=== PATIENT | male | born 1980 | race African-American/Black ===

== ENCOUNTER 2020-11-07 07:51 | Inpatient (IN) | payer OTHER ==
[~2020-11-07] VITALS: Ht 175.3 cm; Wt 88.9 kg
--- NOTE | ~2020-11-07 | CON ---
[address] [address] CONSULTATION Name: BRANDEE BEE Room: [address] IN .R.#: [id number] Admission: 11/07/20 Attend Phys: Nando Langston Discharge: Date of : 78 Report #: [id number] THIS REPORT FOR: cc: FAM - No family physician/PCP FAM - No family physician/PCP Eduardo White MD ~ DOC #: [id number] Eduardo White MD DATE OF CONSULTATION: 11/07/2020 HISTORY OF PRESENT ILLNESS: This is a 40-year-old male patient who was evaluated by me for the possibility of Power's palsy. 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 He thinks it was on the left side and now he is having some numbness on the left side, but he also has some symptoms on the right side. Symptoms are just not very well defined. REVIEW OF SYSTEMS: A 14-point review of systems was carried out. It looks like this patient is hypertensive and at least is running high blood pressure here. 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 He also has some symptoms in the left arm. A 14-point review of system otherwise was noncontributory. PAST MEDICAL HISTORY: What he describes as Power's palsy, but I do not have any records to confirm that. SOCIAL HISTORY: He smokes, but he said he smokes very little. PHYSICAL EXAMINATION: GENERAL: The patient's examination indicates that this patient is alert, responsive, able to follow simple and complex commands. He talks very little and he just feels not right. NEUROLOGIC: Cranial nerve examination 2-12 does appear to be showing facial palsy on the right side, but I do not know what is old and what is new. Similarly, he appeared to be weak in generalized fashion. His position sense is intact. He does not have any cerebellar sign. CARDIAC: His cardiac examination is unremarkable. RESPIRATORY: No respiratory difficulty was noticed. VITAL SIGNS: Blood pressure is 156/103, respirations 20, pulse is 67, temperature is 98.3. LABORATORY DATA: His MCV for some reason is high at 106 and platelet count is also high. DIAGNOSTIC DATA: His CT scan was reviewed and it does show a question of stroke, age of that is difficult to determine. [place] [address] CONSULTATION Name: BRANDEE BEE Maritza Room: [address]#: [id number] Admission: 11/07/20 Attend Phys: Nando Langston Discharge: Date of : 78 Report #: [id number] yesterday, which is more than 24 hours ago. IMPRESSION: This patient does appear to have CT evidence of strokes. We need to confirm that with an MRI and if it confirms, he needs extensive workup. I ordered a stat CTA of the head and neck. I discussed his potential complication with the patient and he understands that and I will also go ahead and do an MRI and some workup because he is a young individual. Ultimate cause may sock turner to be hypertension, but other vascular risk factors need to be excluded. The patient wants to follow this plan and we will do that. Thank you very much for this referral. MD URBANO Mccartney/SADIA/ELAN By: [id number] 29Eduardo White MD /nt
[2020-11-07 08:02] VITALS: BP 156/126
[2020-11-07 08:45] LABS: ABSOLUTE BASOPHILS 0.1 thou/uL (0.0-0.2); ABSOLUTE EOSINOPHILS 0.3 thou/uL (0.0-0.7); ABSOLUTE LYMPHOCYTES 2.6 thou/uL (0.8-5.3); ABSOLUTE NEUTROPHILS 7.1 thou/uL (1.6-8.1); BASOPHILS 0.8 %; EOSINOPHILS 2.3 %; HEMATOCRIT 46.4 % (42.0-52.0); HEMOGLOBIN 15.8 gm/dL (14.0-18.0); LYMPHOCYTES 23.7 %; MCH 36.3 pg (26.0-34.0); MCHC 34.1 g/dL (28.0-37.0); MCV 106.4 fL (80.0-100.0); MONOCYTES 8.8 %; MPV 7.3 fl. (7.2-11.1); NUCLEATED RBCS 0 /100WBC; PLATELET COUNT* 455 thou/uL (150-400); POLYS 64.4 %; RBC 4.36 mil/uL (4.50-6.00); RDW-CV 17.3 % (10.5-14.5)
[2020-11-07 08:59] LABS: CALCIUM 8.8 mg/dL (8.5-10.1); CREATININE 0.9 mg/dL (0.6-1.3); POTASSIUM 3.3 mmol/L (3.5-5.1)
--- NOTE | 2020-11-07 09:00 | NUR ---
ASSUMED CARE OF PT. NIH AND SWALLOW STUDY PERFORMED. VSS. 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
[2020-11-07] MEDS ORDERED: PREDNISONE 20 M20 M1 PO (09:02)
[2020-11-07] MEDS ORDERED: ACYCLOVIR 400400 MG PO (09:02)
[2020-11-07 09:03] LABS: ALBUMIN 3.2 g/dL (3.4-5.0); TOTAL BILIRUBIN 0.4 mg/dL (<0.1-1.0); TOTAL PROTEIN 8.4 g/dL (6.4-8.2)
[2020-11-07 11:25] VITALS: BP 162/111
[2020-11-07 11:36] VITALS: BP 171/111
--- NOTE | 2020-11-07 13:04 | NUR ---
PT ADMITTED TO ROOM 225 VIA CART FROM ED AT APPROXIMATELY 1140. PT ORIENTED TO ROOM AND CALL LIGHT. ADMISSION ASSESSMENT AND HISTORY CHARTED. SEPSIS NEGATIVE. PT FAILED BEDSIDE SWALLOW IN ED PER ERROL LERNER. PT NPO. SPEECH THERAPY NOTIFIED AND WILL BE HERE TO ASSESS PT SHORTLY. PT A&0X4, DENIES ANY PAIN OR SHORTNESS OF BREATH AT THIS TIME. PT STATES," I JUST HAVENT FELT RIGHT ALL OVER SINCE YESTERDAY". NIH CHARTED. PT UP WITH SBA TO BATHROOM. 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 ON RA SAT UPPER 90'S. PT DENIES TAKING ANY HOME MEDICATIONS. NEURO CONSULT IN PLACE. MEDS PER AUG. CALL LIGHT WITHIN REACH. WILL CONTINUE PLAN OF CARE.
--- NOTE | 2020-11-07 14:28 | EKG ---
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: KONRAD : 1980 Requested By: Alfredo Tijerina Order Number: [id number] MD: Jean-Pierre Diez Measurements Intervals [place] Rate: 70 P: 68 WI: 167 QRS: 32 QRSD: 96 T: 70 QT: 420 QTc: 454 Interpretive Statements Sinus rhythm Minimal ST elevation, anterior leads normal variant No previous ECG available for comparison Electronically Signed On 11-07-2020 14:28:30 CDT by Jean-Pierre Diez [email or web address] <ELECTRONICALLY SIGNED> By: Jean-Pierre Diez MD, [facility] 11/07/20 1428 0830 Jean-Pierre Diez MD, [facility] /EPI
--- NOTE | 2020-11-07 17:04 | 2DMMODE ---
[place] [address] 2 D/M-MODE ECHOCARDIOGRAM Name: BRANDEE BEE Room: [address] IN [facility]#: [id number] Admission: 11/07/20 Attend Phys: Sohail Reddy Discharge: Date of : 78 Date of Service: 11/07/20 1704 Report #: [id number] THIS REPORT FOR: cc: FAM - No family physician/PCP FAM - No family physician/PCP Curly Jerez MD [facility] ~ APPROVED REPORT Study performed: 11/07/2020 16:15:24 EXAM: Comprehensive 2D, Doppler, and color-flow Echocardiogram Patient Location: Bedside BSA: 2.07 HR: 63 bpm BP: 171/111 mmHg Other Information Study Quality: Adequate Indications CVA/TIA Echo Enhancing Agent Indication: Rule out Shunt Agent(s) / Amount(s) Used: Agitated Saline 6 cc 2D Dimensions IVSd: 15.04 (7-11mm) LVOT Diam: 21.28 (18-24mm) LVDd: 49.31 mm PWd: 11.00 (7-11mm) Ascending Ao: 27.95 (22-36mm) LVDs: 36.26 (25-40mm) Aortic Root: 34.68 mm Volumes Left Atrial Volume (Systole) LA ESV Index: 22.00 mL/m2 Aortic Valve AoV Peak Felton.: 0.90 m/s AO Peak Gr.: 3.25 mmHg LVOT Max P.32 mmHg AO Mean Gr.: 1.98 mmHg LVOT Mean P.10 mmHg LVOT Max V: 0.76 m/s AO V2 VTI: 17.61 cm LVOT Mean V: 0.48 m/[place] [address] 2 D/M-MODE ECHOCARDIOGRAM Name: BRANDEE BEE Room: [address] IN ..#: [id number] Admission: 11/07/20 Attend Phys: Sohail Reddy Discharge: Date of : 78 Date of Service: 11/07/20 1704 Report #: [id number] LONG (VTI): 2.93 cm2 LVOT V1 VTI: 14.52 cm Mitral Valve E/A Ratio: 1.49 MV Decel. Time: 200.98 ms MV E Max Felton.: 0.67 m/s MV PHT: 58.28 ms MVA (PHT): 3.77 cm2 TDI E/Lateral E': 8.38 E/Medial E': 11.17 Medial E' Felton.: 0.06 m/s Lateral E' Felton.: 0.08 m/s Pulmonary Valve PV Peak Felton.: 0.71 m/s PV Peak Gr.: 2.02 mmHg Tricuspid Valve RAP Estimate: 20.00 mmHg TR Peak Gr.: 29.18 mmHg RVSP: 49.18 mmHg PA Pressure: 49.18 mmHg Left Ventricle The left ventricle is normal size. There is normal LV segmental wall motion. Mild concentric left ventricular hypertrophy. Left ventricular systolic function is normal. LVEF is 50-55%. Transmitral Doppler flow pattern suggests impaired LV relaxation. Right Ventricle The right ventricle is normal size. The right ventricular systolic function is normal. Atria The left atrium size is normal. Injection of bubbles documented no interatrial shunt. The right atrium size is normal. Aortic Valve The aortic valve is normal in structure. No aortic regurgitation is present. There is no aortic valvular stenosis. Mitral Valve The mitral valve is normal in structure. There is no mitral valve regurgitation noted. No evidence of mitral valve stenosis. Tricuspid Valve The tricuspid valve [place] [address] 2 D/M-MODE ECHOCARDIOGRAM Name: BRANDEE BEE Room: [address] IN [facility]#: [id number] Admission: 11/07/20 Attend Phys: Sohail Reddy Discharge: Date of : 78 Date of Service: 11/07/20 1704 Report #: [id number] regurgitation. Pulmonic Valve The pulmonary valve is normal in structure. Trace pulmonic regurgitation. Great Vessels The aortic root is normal in size. IVC is normal in size and collapses >50% with inspiration. Pericardium There is no pericardial effusion. <Conclusion> The left ventricle is normal size. Mild concentric left ventricular hypertrophy. Left ventricular systolic function is normal. LVEF is 50-55%. Transmitral Doppler flow pattern suggests impaired LV relaxation. Injection of bubbles documented no interatrial shunt. Trace tricuspid regurgitation. <ELECTRONICALLY SIGNED> By: Curly Jerez MD, FACC 11/07/201703 03 03 Curly Jerez MD, FACC /INF
[2020-11-07 17:16] VITALS: BP 156/103
[2020-11-07 17:18] VITALS: BP 156/103
[2020-11-07 20:00] VITALS: BP 162/95
[2020-11-08 00:53] VITALS: BP 163/95
[2020-11-08 04:18] LABS: HEMATOCRIT 46.2 % (42.0-52.0); HEMOGLOBIN 15.8 gm/dL (14.0-18.0); MCH 36.9 pg (26.0-34.0); MCHC 34.2 g/dL (28.0-37.0); MCV 107.7 fL (80.0-100.0); MPV 7.7 fl. (7.2-11.1); RBC 4.29 mil/uL (4.50-6.00); RDW-CV 17.6 % (10.5-14.5); WBC 11.1 thou/uL (4.0-11.0)
[2020-11-08 04:36] VITALS: BP 168/104
[2020-11-08 04:44] LABS: ANION GAP 7 mmol/L (7-16); BUN 8 mg/dL (7-18); CALCIUM 8.7 mg/dL (8.5-10.1); CHLORIDE 104 mmol/L (98-107); CHOLESTEROL 128 mg/dL (<200); CO2 29 mmol/L (21-32); CREATININE 0.7 mg/dL (0.6-1.3); GLUCOSE 85 mg/dL (70-99); HDL CHOLESTEROL 24 mg/dL (>40); LDL CHOLESTEROL 82 mg/dL (<100); POTASSIUM 3.5 mmol/L (3.5-5.1); SODIUM 140 mmol/L (136-145); TC:HDL 5.3 Ratio (Not establshd); TRIGLYCERIDE 114 mg/dL (<150); VLDL 23 mg/dL (<40)
[2020-11-08 04:47] LABS: SERUM ASSESSMENT CLEAR
--- NOTE | 2020-11-08 06:50 | NUR ---
Alert and oriented x 4. 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 He has been getting up to the bathroom without difficulty. NIH score 4. He was drinking thin liquids and didn't have any difficulties. I did speak with inside solar sales consultant MD and order was recieved for video swallow and NPO until it has been obtained and reviewed. Patient is aware. His BP has been elevated this was reported and we will continue to monitor. He is sinus rhythm to sinus jesi. He did have tylenol x 1 at bedtime. He has slept well.
[2020-11-08 08:00] VITALS: BP 160/115
[2020-11-08 11:10] VITALS: BP 155/105
[2020-11-08 16:51] VITALS: BP 165/104
[2020-11-08 20:00] VITALS: BP 151/93
[2020-11-08 20:58] LABS: APTT 24.8 Seconds (25.0-31.3); PROTIME 10.9 Seconds (9.20-11.50)
[2020-11-09 00:35] VITALS: BP 162/103
[2020-11-09 02:06] LABS: GLYCOHEMOGLOBIN (HGB A1C) 5.6 % (4.8-5.6)
[2020-11-09 04:27] LABS: HEMATOCRIT 45.9 % (42.0-52.0); HEMOGLOBIN 15.7 gm/dL (14.0-18.0); MCH 36.9 pg (26.0-34.0); MCHC 34.1 g/dL (28.0-37.0); MCV 108.3 fL (80.0-100.0); MPV 7.4 fl. (7.2-11.1); RBC 4.24 mil/uL (4.50-6.00); RDW-CV 18.1 % (10.5-14.5); WBC 14.6 thou/uL (4.0-11.0)
[2020-11-09 04:30] VITALS: BP 152/100
[2020-11-09 04:45] LABS: CALCIUM 8.8 mg/dL (8.5-10.1); CREATININE 0.7 mg/dL (0.6-1.3); POTASSIUM 3.4 mmol/L (3.5-5.1)
[2020-11-09 08:00] VITALS: BP 151/112
--- NOTE | 2020-11-09 09:11 | NUR ---
CM ASSESSMENT: PT A&O, INDEPENDENT WITH ADL'S, ACTIVE AND WORKS OUTSIDE THE HOME. PT USES 0 DME. PT HAS 0 HX OF HH OR SNF. REVIEW OF PT'S CHART INFORMS THAT THE PT IS UNINSURED. PT CONFIRMS THIS AND THAT HE DOES NOT QUALIFY FOR MEDICAID. CM PROVIDED PT WITH COMMUNITY RESOURCE INFO FOR F/U WITHIN HIS COMMUNITY. CM WILL REMAIN AVAILABLE TO ASSIST AND FOLLOW NEEDED.
[2020-11-09 13:32] LABS: CSF CLARITY CLEAR; CSF COLOR COLORLESS; VOLUME 3.1 ml
[2020-11-09 13:33] LABS: CSF RBC 1 /mm3; CSF WBC 0 /mm3 (0-10)
[2020-11-09] MEDS ORDERED: LIPITOR40 MG PO (13:44)
[2020-11-09] MEDS ORDERED: ASPIRIN325 PO (13:44)
[2020-11-09 13:45] LABS: CSF GLUCOSE 55 mg/dl (40-70); CSF PROTEIN 102.7 mg/dl (15-45)
--- NOTE | 2020-11-09 16:30 | NUR ---
PLAN FOR THE PT TO D/C HOME TODAY WITH SELF-CARE. CM PROVIDED PT WITH COMMUNITY RESOURCE INFO FOR [facility] GOLD PLAN. CM WILL REMAIN AVAILABLE TO ASSIST AND FOLLOW NEEDED.
[2020-11-09 16:58] VITALS: BP 151/112
--- NOTE | 2020-11-09 17:26 | NUR ---
RECEIVED REPORT AROUND 0715. ASSUMED CARE. VS AND ASSESSMENT CHARTED. IV INTACT RIGHT AC. HEART MONITOR ATTACHED AT SR. LUMBAR PUNCTURE DONE THIS AM. CSF FLUID CAME BACK NEGATIVE. PT UP ADLIB. NIH SCORE 5. DISCHARGE ORDERS RECEIVED. FOUR HOUR LAYING FLAT DONE. SITE DRY,CLEAN, INTACT. IV TAKEN OUT. HEART MONITOR TAKEN OFF. MEDS GIVEN PER AUG. DISCHARGE PACKET GIVEN TO PT. COMMUNICATED UNDERSTANDING. PT LEFT UNIT VIA AMBULATORY WITH NURSING STAFF AND ALL BELONGINGS AT 1726.
[2020-11-09 21:06] LABS: ANA INTERPRETATION Negative (())
== END 2020-11-09 17:25 | disposition home or self-care (01) | DRG 65 ==
LOC: M.ERS 07:51 → M.TBA-ER 09:13 → M.2W 11:31
PROVIDERS: Family Medicine; Psychiatry & Neurology Neuromuscular Medicine; ADMIT Internal Medicine; ATTEND Internal Medicine
PROC: B01B1ZZ Fluoroscopy of Spinal Cord using Low Osmolar Contrast (ICD-10-PCS; principal; 2020-11-09)
PROC: 009U3ZX Drainage of Spinal Canal, Percutaneous Approach, Diagnostic (ICD-10-PCS; principal; 2020-11-09)
DX: I63.81 Other cerebral infarction due to occlusion or stenosis of small artery (principal); I16.1 Hypertensive emergency; I10 Essential (primary) hypertension; E87.6 Hypokalemia; F17.210 Nicotine dependence, cigarettes, uncomplicated; Z20.822 Contact with and (suspected) exposure to COVID-19; Z72.89 Other problems related to lifestyle